=== PATIENT | female | born 1955 | race Caucasian/White ===

== ENCOUNTER 2018-02-17 19:33 | Emergency (ER) | payer OTHER ==
--- NOTE | 2018-02-17 19:38 | PDOC ---
History of Present Illness - General History Source: Patient Exam Limitations: No Limitations - History of Present Illness Initial Comments: The patient is a 62 year old female with past medical history of breast cancer ( 20 years ago;s/p mastectomy) and varicose veins presents to the emergency department with bilateral puffy eyes since yesterday. The patient reports she tried to retrace her steps to find the cause of the problem and she concluded it began after she took aspirin. The patient reports bilateral lower and upper eyelid swelling, with itching and burning sensation, no relief with the use of ice. Denies any problem with aspirin in the past. Denies any watery discharge or change in vision. Denies any cough, congestion or headaches. Denies any nausea, vomiting, diarrhea or constipation. Social history: History of smoking. Denies the use of alcohol or recreational drugs. Allergies: NKDA. Denies any history of pollen allergies. PCP: Dr. Fran Keating 02/17/18 20:25 <Aurora Serrano - Last Filed: 02/17/18 21:51> <Taylor Clayton - Last Filed: 02/18/18 01:50> - General Stated Complaint: PUFFY EYES Time Seen by Provider: 02/17/18 19:36 Past History <Aurora Serrano - Last Filed: 02/17/18 21:51> - Past Medical History Cancer: Yes (BREAST) COPD: No - Suicide/Smoking/Psychosocial Hx Smoking History: Current every day smoker Have you smoked in the past 12 months: Yes Number of Cigarettes Smoked Daily: 8 'Breaking Loose' booklet given: 08/03/14 Hx Alcohol Use: No Drug/Substance Use Hx: No Substance Use Type: None <Taylor Clayton - Last Filed: 02/18/18 01:50> - Past Medical History Allergies/Adverse Reactions: Allergies Allergy/AdvReac Type Severity Reaction Status Date / Time No Known Allergies Allergy Verified 08/16/17 03:39 Home Medications: Ambulatory Orders ASA/Calcium Carb/Mag/Aluminum [Stiven Plus 500 mg Caplet] 500 mg PO ONCE Olopatadine HCl [Patanol] 2 drop OU BID #1 bottle 02/17/18 Review of Systems - Review of Systems Able to Perform ROS?: Yes Comments:: 02/17/18 20:25 GENERAL/CONSTITUTIONAL: No fever or chills. No weakness. HEAD, EYES, EARS, NOSE AND THROAT: (+) Bilateral upper and lower eyelid swelling. No change in vision. No ear pain or discharge. No sore throat. CARDIOVASCULAR: No chest pain or shortness of breath. RESPIRATORY: No cough, wheezing, or hemoptysis. GASTROINTESTINAL: No nausea, vomiting, diarrhea or constipation. GENITOURINARY: No dysuria, frequency, or change in urination. MUSCULOSKELETAL: No joint or muscle swelling or pain. No neck or back pain. SKIN: No rash NEUROLOGIC: No headache, vertigo, loss of consciousness, or change in strength/ sensation. ENDOCRINE: No increased thirst. No abnormal weight change. HEMATOLOGIC/LYMPHATIC: No anemia, easy bleeding, or history of blood clots. ALLERGIC/IMMUNOLOGIC: No hives or skin allergy. <Aurora Serrano - Last Filed: 02/17/18 21:51> *Physical Exam - Vital Signs Last Vital Signs Temp Pulse Resp BP Pulse Ox 98.3 F 86 16 191/94 100 02/17/18 19:39 02/17/18 19:39 02/17/18 19:39 02/17/18 19:39 02/17/18 19:39 - Physical Exam Comments: 02/17/18 20:25 GENERAL: Awake, alert, and fully oriented, in no acute distress HEAD: No signs of trauma EYES: (+) Bilateral moderate upper and lower periorbital edema w/ moderate conjunctival erythema. Pupil anterior chamber normal, no purulent or cresting of the eyelash margin either eye. PERRLA, EOMI intact. ENT: Auricles normal inspection, hearing grossly normal, nares patent, oropharynx clear without exudates. Moist mucosa NECK: Normal ROM, supple, no lymphadenopathy, JVD, or masses LUNGS: Breath sounds equal, clear to auscultation bilaterally. No wheezes, and no crackles HEART: Regular rate and rhythm, normal S1 and S2, no murmurs, rubs or gallops ABDOMEN: Soft, nontender, normoactive bowel sounds. No guarding, no rebound. No masses EXTREMITIES: Normal range of motion, no edema. No clubbing or cyanosis. No cords, erythema, or tenderness NEUROLOGICAL: Cranial nerves II through XII grossly intact. Normal speech, normal gait SKIN: Warm, Dry, normal turgor, no rashes or lesions noted. <Aurora Serrano - Last Filed: 02/17/18 21:51> Medical Decision Making - Medical Decision Making Documentation has been prepared under my direction and personally reviewed by me in its entirety. I attest that this documented accurately reflects all work, treatment, procedures and medical decision making performed by me. As noted above, this 62-year-old woman presents with a one-day history of bilateral periorbital edema/pruritus and conjunctival erythema. No other symptoms present; clinical presentation most consistent of ALLERGIC conjunctivitis of unclear etiology. Since tree pollen is currently at very high level, this is most likely the origin of her ALLERGIC reaction. In any case, patient will be treated with ophthalmic antihistamine (Patanol) drops and patient will place cool compresses to the area. She should follow-up with her general medical doctor; she can return to the emergency room she has severe symptoms. <Taylor Clayton - Last Filed: 02/18/18 01:50> *DC/Admit/Observation/Transfer - Attestations Scribe Attestion: 02/17/18 20:26 Documentation prepared by Aurora Serrano, acting as medical practice administrator for Taylor Clayton MD. <Aurora Serrano - Last Filed: 02/17/18 21:51> <Taylor Clayton - Last Filed: 02/18/18 01:50> Diagnosis at time of Disposition: Allergic conjunctivitis Qualifiers: Laterality: bilateral Qualified Code(s): H10.13 - Acute atopic conjunctivitis, bilateral - Discharge Dispostion Disposition: HOME Condition at time of disposition: Stable - Prescriptions Prescriptions: Olopatadine HCl [Patanol] 2 drop OU BID #1 bottle - Referrals Referrals: Fran Keating NP [Primary Care Provider] - - Patient Instructions Printed Discharge Instructions: DI for Eye Allergic Reaction Additional Instructions: Keep head elevated at night with extra pillow Cool compresses to both eyes as needed Patanol drops 2 drops in each eye twice a day for the next week Return if you have worsening itching/swelling/redness Follow-up with your general doctor within the next 7 days - Post Discharge Activity
[2018-02-17 19:53] VITALS: BP 191/94; PULSE 86; TEMP 98.3; BMI 25.6
== END 2018-02-17 20:20 | disposition home or self-care (01) ==
LOC: FER 19:33
DX: H10.13 Acute atopic conjunctivitis, bilateral (principal); F17.210 Nicotine dependence, cigarettes, uncomplicated; Z85.3 Personal history of malignant neoplasm of breast; Z90.10 Acquired absence of unspecified breast and nipple
CPT/HCPCS: 99281-25

== ENCOUNTER 2018-04-08 05:29 | Observation (INO) | payer OTHER ==
--- NOTE | 2018-04-08 05:37 | PDOC ---
History of Present Illness - General Chief Complaint: Redness To Affected Area Stated Complaint: LEG PAIN/ITCHING Time Seen by Provider: 04/08/18 05:35 History Source: Patient Exam Limitations: No Limitations - History of Present Illness Initial Comments: 04/08/18 05:42 This is a 62-year-old female who had an ALLERGIC reaction that involved her left lower extremity. Patient said it was very itchy initially which was a couple weeks ago. Patient said she was scratching it and now it is gotten progressively worse. Patient said it is still itching but now it is also very painful. Patient denies any fevers or chills. Patient said she has been to the urgent care and her doctor without any relief. Patient now comes in for evaluation. Patient is otherwise healthy. PAST MEDICAL HISTORY: no significant history PAST SURGICAL HISTORY: no significant history FAMILY HISTORY: no pertinant history SOCIAL HISTORY: Pt lives with family and is employed. MEDICATIONS: reviewed ALLERGIES: As per nursing notes Review of Systems General: No fevers or chills, no weakness, no weight loss HEENT: No change in vision. No sore throat,. No ear pain CardioVascular: No chest pain or shortness of breath Respiratory:No cough, or wheezing. Gastrointestinal: no nausea, vomitting, diarrhea or constipation, No rectal bleeding Genitourinary: No dysuria, hematuria, or frequency Musculoskeletal: No joint or muscle pain or swelling Neurologic: No headache, vertigo, dizziness or loss of consciousness Psychiatric: nor depression Skin: Rash itching swelling pain left lower extremity Endocrine: no increased thirst or abnormal weight change Allergic: no skin or latex allergy All other systems reviewed and normal GENERAL: The patient is awake, alert, and fully oriented, in moderate distress HEAD: Normal with no signs of trauma. EYES: Pupils equal, round and reactive to light, extraocular movements intact, sclera anicteric, conjunctiva clear. EXTREMITIES: Normal range of motion, no edema. Left lower extremity from knee down the leg is markedly red and swollen with weeping of a moderate amount of serosanguineous fluid. Neurovascular distal is intact NEUROLOGICAL: Normal speech, normal gait. grossly intact PSYCH: Normal mood, normal affect. SKIN: Warm, Dry, normal turgor, no rashes or lesions noted. Medical decision making: This is a 62-year-old female comes in complaining of left leg pain. Patient on exam does appear to have cellulitis of the leg in addition to that there is moderate amount of swelling. Will obtain workup including CBC, comp, blood cultures, DOPPLER TO RULE OUT DVT. We'll start patient on antibiotics vancomycin and Zosyn. We'll reassess and evaluate results of workup 07:00 Care of this patient was signed out to Dr. Emanuel Scott.. Case discussed in detail with oncoming Emergency Physician including history, physical exam and ancillary studies. Oncoming Emergency Physician has assumed care for the patient and will complete the evaluation and treatment. Patient is aware of the plan. Pt is clinically unchanged and stable. 04/08/18 06:56 Past History - Past Medical History Allergies/Adverse Reactions: Allergies Allergy/AdvReac Type Severity Reaction Status Date / Time No Known Allergies Allergy Verified 08/16/17 03:39 Home Medications: Ambulatory Orders ASA/Calcium Carb/Mag/Aluminum [Stiven Plus 500 mg Caplet] 500 mg PO ONCE Olopatadine HCl [Patanol] 2 drop OU BID #1 bottle 02/17/18 Cancer: Yes (BREAST) COPD: No - Suicide/Smoking/Psychosocial Hx Smoking History: Current every day smoker Have you smoked in the past 12 months: Yes Number of Cigarettes Smoked Daily: 8 Information on smoking cessation initiated: Yes 'Breaking Loose' booklet given: 08/03/14 Hx Alcohol Use: No Drug/Substance Use Hx: No Substance Use Type: None *Physical Exam - Vital Signs Last Vital Signs Temp Pulse Resp BP Pulse Ox 97.8 F 72 18 161/88 98 04/08/18 05:32 04/08/18 05:32 04/08/18 05:32 04/08/18 05:32 04/08/18 05:32 *DC/Admit/Observation/Transfer Diagnosis at time of Disposition: Cellulitis of left leg - Discharge Dispostion Condition at time of disposition: Stable - Referrals Referrals: Fran Keating NP [Primary Care Provider] - - Patient Instructions - Post Discharge Activity
[2018-04-08] MEDS ORDERED: VANCOMYCIN 1 GRAM (PRE-DOCKED) 1,000 MG/250 ML BAG IVPB ONE ×2 (05:38→17:00)
[2018-04-08] MEDS ORDERED: PIPERACILLIN/TAZOB 3.375 GM 3.375 GM in DEXTROSE 5%-WATER - 50 ML IVPB ONE (05:38)
[2018-04-08] MEDS ORDERED: VANCOMYCIN 1,000 MG VIAL (RESTRICTED TO ID ONLY) ONE (05:40)
[2018-04-08] MEDS ORDERED: PIPERACILLIN/TAZOBACTAM 3.375 GM VIAL IVPB ONE (05:40)
[2018-04-08] MEDS ORDERED: morphine CARPU-JECT 4 MG/1 ML DISP.SYRIN IVPUSH ONE ×2 (05:42→07:12)
[2018-04-08] MEDS ORDERED: morphine SULFATE 4 MG/ML VIAL ONE ×2 (05:44→07:15)
[2018-04-08 07:02] LABS: BASO % 0.7 % (0-2.0); EOS % 8.7 % (0-4.5); HEMATOCRIT 35.5 % (32.4-45.2); LYMPH % 30.9 % (8-40); MCHC 33.8 g/dl (32.0-36.0); MEAN CELL VOLUME 91.6 fl (80-96); MONO % 5.9 % (3.8-10.2); NEUT % 53.8 % (42.8-82.8); PLATELET COUNT 357 K/MM3 (134-434); RBC 3.87 M/mm3 (3.60-5.2); RDW 12.7 % (11.6-15.6); WHITE BLOOD COUNT 8.2 K/mm3 (4.0-10.8)
[2018-04-08 07:08] LABS: ALBUMIN 3.4 g/dl (3.5-5.0); ALK PHOS 87 U/L (32-92); ANION GAP 13 (8-16); BILIRUBIN,TOTAL 0.5 mg/dl (0.2-1.0); BLOOD UREA NITROGEN 17 mg/dl (7-18); CHLORIDE 101 mmol/L (98-107); CO2 22 mmol/L (22-28); CREATININE 0.6 mg/dl (0.6-1.3); GLUCOSE,RANDOM 95 mg/dl (74-106); POTASSIUM 4.2 mmol/L (3.5-5.1); SGOT/AST 19 U/L (10-42); SGPT/ALT 10 U/L (10-40); SODIUM 136 mmol/L (136-145); TOT PROT 6.7 g/dl (6.4-8.3)
[2018-04-08] MEDS ORDERED: ACETAMINOPHEN 325 MG TABLET (FP) PO ONE (07:12)
--- NOTE | 2018-04-08 07:12 | PDOC ---
*Physical Exam - Vital Signs Last Vital Signs Temp Pulse Resp BP Pulse Ox 97.8 F 72 18 161/88 98 04/08/18 05:32 04/08/18 05:32 04/08/18 05:32 04/08/18 05:32 04/08/18 05:32 ED Treatment Course - LABORATORY CBC & Chemistry Diagram: 04/08/18 05:45 04/08/18 05:45 - ADDITIONAL ORDERS Additional order review: 04/08/18 05:45 RBC 3.87 MCV 91.6 MCHC 33.8 RDW 12.7 MPV 8.0 Neutrophils % 53.8 Lymphocytes % 30.9 Monocytes % 5.9 Eosinophils % 8.7 H Basophils % 0.7 - Medications Given in the ED: ED Medications Discontinued Medications Generic Name Dose Route Start Last Admin Trade Name Freq PRN Reason Stop Dose Admin Piperacillin Sod/Tazobactam 50 mls @ 100 mls/hr 04/08/18 05:38 04/08/18 06:04 Sod 3.375 gm/ Dextrose IVPB 04/08/18 06:07 100 mls/hr ONCE ONE Administration Protocol Morphine Sulfate 4 mg 04/08/18 05:42 04/08/18 05:45 Morphine Injection - IVPUSH 04/08/18 05:43 4 mg ONCE ONE Administration Vancomycin HCl 1,000 mg 04/08/18 05:38 04/08/18 06:33 Vancomycin (Pre-Docked) IVPB 04/08/18 05:39 1,000 mg ONCE ONE Administration Protocol Medical Decision Making - Medical Decision Making 04/08/18 07:08 Pt signed out to me from Dr. Ramirez Pt is a 62y F with no pmhx arrived complaining of leg pain/swelling, initially started as what she thought to be allergic irreigation, was itchy she was scratching at it until its current status where it is weaping, red/warm, and painful. pt denies any other complaints inluding fever/chills, cp/sob, n/v or discomfort anywhere else. On exam pts LLE is weaping serous fluid, erythemadous , warm to the touch on her anterior lozano/lower leg diffusely with some excoriations., neg homans sign, +pitting edmea +1 suspect celluitis blood work noted for no wbc, rest is pending awaiting DVT study pt getting vanc and zosyn currently 04/08/18 09:06 US neg for dvt ut due to extent of celluitis, will obs pt for a few doses of iv abx 04/08/18 09:32 case dw LESLEY renae agree with obsergation med sug will admit to dr. greenberg service Case discussed in detail with admitting physician including history, physical exam and ancillary studies. Admitting physician has assumed care for the patient, will follow all pending diagnostics and will complete the evaluation and treatment. *DC/Admit/Observation/Transfer Diagnosis at time of Disposition: Cellulitis of left leg - Discharge Dispostion Condition at time of disposition: Stable Decision to Admit order: Yes - Referrals Referrals: Fran Keating NP [Primary Care Provider] - - Patient Instructions - Post Discharge Activity
[2018-04-08] MEDS ORDERED: ACETAMINOPHEN 325 MG TABLET (FP) ONE (07:15)
--- NOTE | 2018-04-08 10:07 | HP ---
CHIEF COMPLAINT: left lower extremity redness and pain PCP: y[facility] HISTORY OF PRESENT ILLNESS: Patient is a 62 y/o female with a past medical history of right breast CA (s/p masectomny/reconstruction/implant). patient reports a pruritic rash that began 2 weeks ago to face, bilateral arms and lower extremities. She was evaluated at a local urgent care and was placed on 7 days of prednisone. She reports taking the prednisone as prescribed and the rash improved. However, three days ago the pruitic rash returned. She notes scratching her left lower extremities within the past 2 days and developing pain and erythema to the extremity. Patient denies any paresthesia to the extremity or fever. ER course was notable for: (1) wbc 8.2 (2) doppler of left lower extremity no evidence of DVT (3) chest xray: no infilirate no effusion noted, right breast implant noted Recent Travel: none PAST MEDICAL HISTORY: see hpi PAST SURGICAL HISTORY: see hpi Social History: resides at home with Smoking: none Alcohol: none Drugs: none Family History: mother: alive, hypertension/alzhemiers father: alive, hypertension Allergies No Known Allergies Allergy (Verified 08/16/17 03:39) HOME MEDICATIONS: Home Medications Medication Instructions Recorded ASA/Calcium Carb/Mag/Aluminum 500 mg PO ONCE 02/17/18 [Stiven Plus 500 mg Caplet] Olopatadine HCl [Patanol] 2 drop OU BID #1 bottle 02/17/18 REVIEW OF SYSTEMS CONSTITUTIONAL: Absent: fever, chills, diaphoresis, generalized weakness, malaise, loss of appetite, weight change HEENT: Absent: rhinorrhea, nasal congestion, throat pain, throat swelling, difficulty swallowing, mouth swelling, ear pain, eye pain, visual changes CARDIOVASCULAR: Absent: chest pain, syncope, palpitations, irregular heart rate, lightheadedness , peripheral edema RESPIRATORY: Absent: cough, shortness of breath, dyspnea with exertion, orthopnea, wheezing, stridor, hemoptysis GASTROINTESTINAL: Absent: abdominal pain, abdominal distension, nausea, vomiting, diarrhea, constipation, melena, hematochezia GENITOURINARY: Absent: dysuria, frequency, urgency, hesitancy, hematuria, flank pain, genital pain MUSCULOSKELETAL: Absent: myalgia, arthralgia, joint swelling, back pain, neck pain SKIN: Absent: rash, itching, pallor HEMATOLOGIC/IMMUNOLOGIC: Absent: easy bleeding, easy bruising, lymphadenopathy, frequent infections ENDOCRINE: Absent: unexplained weight gain, unexplained weight loss, heat intolerance, cold intolerance NEUROLOGIC: Absent: headache, focal weakness or paresthesias, dizziness, unsteady gait, seizure, mental status changes, bladder or bowel incontinence PSYCHIATRIC: Absent: anxiety, depression, suicidal or homicidal ideation, hallucinations. PHYSICAL EXAMINATION Vital Signs - 24 hr 04/08/18 04/08/18 04/08/18 05:32 07:20 08:05 Temperature 97.8 F 97.7 F Pulse Rate 72 Pulse Rate [ 89 81 Left Radial] Respiratory 18 18 16 Rate Blood Pressure 161/88 Blood Pressure 157/76 138/79 [Left Arm] O2 Sat by Pulse 98 98 96 Oximetry (%) GENERAL: Awake, alert, and fully oriented, in no acute distress. HEAD: Normal with no signs of trauma. EYES: Pupils equal, round and reactive to light, extraocular movements intact, sclera anicteric, conjunctiva clear. No lid lag. EARS, NOSE, THROAT: Ears normal, nares patent, oropharynx clear without exudates. Moist mucous membranes. NECK: Normal range of motion, supple without lymphadenopathy, JVD, or masses. LUNGS: Breath sounds equal, clear to auscultation bilaterally. No wheezes, and no crackles. No accessory muscle use. HEART: Regular rate and rhythm, normal S1 and S2 without murmur, rub or gallop. ABDOMEN: Soft, nontender, not distended, normoactive bowel sounds, no guarding, no rebound, no masses. No hepatomegaly or splenomegaly. MUSCULOSKELETAL: Normal range of motion at all joints. No bony deformities or tenderness. No CVA tenderness. UPPER EXTREMITIES: 2+ pulses, warm, well-perfused. No cyanosis. No clubbing. No peripheral edema. LOWER EXTREMITIES: 2+ pulses, warm, well-perfused. No calf tenderness. No peripheral edema. LEFT LOWER EXTREMITY: +2 edema, circumferential erythema, weeping of skin to distal extremity, venous stasis changes NEUROLOGICAL: Cranial nerves II-XII intact. Normal speech. Normal gait. PSYCHIATRIC: Cooperative. Good eye contact. Appropriate mood and affect. SKIN: Warm, dry, normal turgor, no rashes or lesions noted, normal capillary refill. Laboratory Results - last 24 hr 06/29/18 06/29/18 05:45 05:45 WBC 8.2 RBC 3.87 Hgb 12.0 Hct 35.5 MCV 91.6 MCH 31.0 MCHC 33.8 RDW 12.7 Plt Count 357 MPV 8.0 Absolute Neuts (auto) 4.4 Neutrophils % 53.8 Lymphocytes % 30.9 Monocytes % 5.9 Eosinophils % 8.7 H Basophils % 0.7 Sodium 136 Potassium 4.2 Chloride 101 Carbon Dioxide 22 Anion Gap 13 BUN 17 Creatinine 0.6 Creat Clearance w eGFR > 60 Random Glucose 95 Calcium 9.0 Total Bilirubin 0.5 AST 19 ALT 10 Alkaline Phosphatase 87 Total Protein 6.7 Albumin 3.4 L ASSESSMENT/PLAN: f/e/n - regular diet - replete electrolytes prn ppx - oob - pepcid - lovenox dispo: pt requires obsv admission Problem List - Problem (1) Venous insufficiency of left leg Assessment/Plan: - kaley bandage, left lower extremity elevation, doppler reviewed - neurovascular checks - appreciate vascular input Code(s): I87.2 - VENOUS INSUFFICIENCY (CHRONIC) (PERIPHERAL) (2) Allergic reaction Assessment/Plan: - pt reports completing 7 days of prednisone last week, unknown trigger, pt denies any new cosmetics, foods, detergents, pruritic rash noted on exam - solumedrol 125mg iv x 1 ordered, start solumedrol with taper as appropriate, benadryl and pepcid ordered Code(s): T78.40XA - ALLERGY, UNSPECIFIED, INITIAL ENCOUNTER (3) Cellulitis of left leg Assessment/Plan: - likely superimposed infection from allergic reaction, continue vancomycin and zosyn - follow blood cultures - appreciate ID input Code(s): L03.116 - CELLULITIS OF LEFT LOWER LIMB Visit type - Emergency Visit Emergency Visit: Yes ED Registration Date: 04/08/18 Care time: The patient presented to the Emergency Department on the above date and was hospitalized for further evaluation of their emergent condition. - New Patient This patient is new to me today: Yes Date on this admission: 04/08/18 - Critical Care Critical Care patient: No Hospitalist Screening - Colonoscopy Questionnaire Colonoscopy Questionnaire: Colonoscopy Questionnaire - Patient: 50 - 75 years old and never had a screening colonoscopy: No History of colon or rectal polyps, or CA: No History of IBD, Crohn's disease or UC: No History of abdominal radiation therapy as a child: No - Relative: 1 with colon or rectal CA, or polyps at age 60 or younger: No Colon or rectal CA diagnosed at age 45 or younger: No Multiple relatives with colon or rectal CA: No - Outcome: Screening Result: Negative Screen
[2018-04-08 11:56] VITALS: BMI 26.5
[2018-04-08] MEDS ORDERED: ONDANSETRON *ODT* 4 MG TABLET SL PRN (12:43)
[2018-04-08] MEDS ORDERED: morphine CARPU-JECT 2 MG/1 ML DISP.SYRIN IVPUSH ONE (13:15)
[2018-04-08] MEDS ORDERED: ACETAMINOPHEN 1000 MG/100 ML VIAL (NON FORMULARY) IVPB ONE (13:30)
[2018-04-08] MEDS ORDERED: methylPREDNISolone NA SUCC 125 MG/2 ML VIAL IVPUSH ONE (13:30)
[2018-04-08] MEDS ORDERED: FAMOTIDINE 20 MG TABLET PO ONE (13:30)
[2018-04-08] MEDS ORDERED: PIPERACILLIN/TAZOB 3.375 GM 3.375 GM/50 ML BAG IVPB ONE (13:45)
--- NOTE | 2018-04-08 16:30 | PN ---
Progress Note, Physician Chief Complaint: ID Full note dictated Diagnosis of LLE cellulitis with ? severe exzema - Current Medication List Current Medications: Active Medications Acetaminophen (Tylenol -) 650 mg PO Q4H PRN PRN Reason: PAIN LEVEL 1-5 Enoxaparin Sodium (Lovenox -) 40 mg SQ DAILY SERG Famotidine (Pepcid -) 20 mg PO BID SERG Vancomycin HCl (Vancomycin (Pre-Docked)) 1,000 mg in 250 mls @ 250 mls/hr IVPB ONCE ONE; Protocol Stop: 04/08/18 17:59 Methylprednisolone Sodium Succinate (Solu-Medrol -) 40 mg IVPUSH Q8H-IV SERG Non-Formulary Medication (Olopatadine Hcl [Patanol]) 2 drop OU BID SERG Ondansetron HCl (Zofran Odt -) 4 mg SL Q8H PRN PRN Reason: NAUSEA AND/OR VOMITING - Objective Vital Signs: Vital Signs Temperature 98.1 F 04/08/18 11:37 Pulse Rate 83 04/08/18 11:37 Respiratory Rate 17 04/08/18 11:37 Blood Pressure 155/63 04/08/18 11:37 O2 Sat by Pulse Oximetry (%) 96 04/08/18 11:37 Constitutional: Yes: Well Nourished, No Distress Neck: Yes: WNL, Supple Cardiovascular: Yes: Regular Rate and Rhythm, S1, S2 Respiratory: Yes: WNL, Regular, CTA Bilaterally Gastrointestinal: Yes: WNL, Normal Bowel Sounds, Soft. No: Tenderness, Tenderness, Epigastrium Labs: CBC, BMP 04/08/18 05:45 04/08/18 05:45 Problem List - Problems (1) Acute eczema Code(s): L30.9 - DERMATITIS, UNSPECIFIED (2) Acute eczema Code(s): L30.9 - DERMATITIS, UNSPECIFIED (3) Cellulitis of left leg Code(s): L03.116 - CELLULITIS OF LEFT LOWER LIMB Assessment/Plan Microbiology Laboratory Tests 04/08/18 05:45 WBC 8.2 Hgb 12.0 Hct 35.5 Plt Count 357 Assessment Severe exzema ? Less likely scabies spares finger webs involves face also Complicating LLE Plan Cefazolin 2grs q 8 H and Derm consult Kareem ROSA
[2018-04-08] MEDS: CEFAZOLIN 2 GM/D5W 2 GM/50 ML ML IVPB SCH (17:26)
[2018-04-08] MEDS: methylPREDNISolone NA SUCC 40 MG/1 ML VIAL IVPUSH SCH (17:26)
[2018-04-08] MEDS: ACETAMINOPHEN 325 MG TABLET (FP) PO PRN (17:27)
--- NOTE | 2018-04-08 17:40 | CONS ---
INFECTIOUS DISEASE CONSULTATION DATE OF CONSULTATION: 04/08/2018 This is a 62-year-old female who I am asked to see with redness and swelling of the left lower extremity. She has a history of breast cancer many years ago, now in remission, status post mastectomy with reconstructive surgery and breast implant. Over the last several weeks, she has had a generalized, extremely pruritic rash involving her shoulders, arms, and lower extremities as well as her nose. She sought medical attention at an urgent care center where she was placed on 7 days of prednisone with some improvement of the rash though not completely. She has not seen a solution consultant and notes that she has been vigorously scratching her legs over the last several days with subsequent pain, redness, and swelling of the left leg. She denies any fever or chills. She is not diabetic and has no other significant past medical history. She was afebrile here with a white count of 8.2 and a Doppler study which shows no evidence of DVT. PAST MEDICAL HISTORY: As noted above. CURRENT MEDICATIONS: Include vancomycin dose given x1. ALLERGIES: None known. SOCIAL HISTORY: Nonsmoker, lives at home. HIV status unknown. FAMILY HISTORY: Mother alive with Alzheimer's. Father alive with hypertension. REVIEW OF SYSTEMS: All systems reviewed and noncontributory. PHYSICAL EXAMINATION: General: She was an alert female in no acute distress. Vital Signs: The temperature was 98.1, blood pressure 155/63, respirations 16, O2 saturation 96%. Neck: Supple without adenopathy. Lungs: Clear to percussion and auscultation. Heart: S1, S2. Regular rhythm without murmur or gallop. Abdomen: Soft, nontender. Normoactive bowel sounds. No guarding, rebound, organomegaly. Extremities: Diffuse swelling of the left lower extremity with confluent erythema superimposed on dry eczematoid-appearing skin. No drainage was noted. Skin: Multiple maculopapular lesions, some ulcerated and crusting on her arms and lower extremities. LABORATORY DATA: Chemistries: Within normal limit. White count of 8.2, hemoglobin 12, platelets 347. Two sets of blood cultures obtained; no growth. ASSESSMENT: A 62-year-old female with what appears to be severe eczema, presents with vigorous scratching and subsequent development of a swollen, red left lower extremity consistent with a diagnosis of cellulitis. She is not febrile or toxic appearing and can be empirically treated with cefazolin given the absence of any discrete abscesses. With regard to the rash, the etiology to me is currently unclear. It looks eczematoid, but the possibility of a scabies rash is considered, though the rash completely spares the webs of the fingers and toes. Clearly, she needs a dermatology consult for further evaluation. With regard to the cellulitis, we will treat her with 2 g of cefazolin every 8 hours. SAMIR GARCIA M.D. [id number]
[2018-04-08] MEDS ORDERED: PERMETHRIN 5% TOPICAL CREAM 60 GM TUBE TP ONE (19:00)
[2018-04-08] MEDS: FAMOTIDINE 20 MG TABLET PO SCH (21:10)
[2018-04-08] MEDS ORDERED: OLOPATADINE HCL OU SCH (22:00)
[2018-04-09] MEDS: CEFAZOLIN 2 GM/D5W 2 GM/50 ML ML IVPB SCH ×3 (01:16→18:08)
[2018-04-09] MEDS: methylPREDNISolone NA SUCC 40 MG/1 ML VIAL IVPUSH SCH ×3 (01:16→18:08)
[2018-04-09] MEDS: ACETAMINOPHEN 325 MG TABLET (FP) PO PRN ×4 (06:56→23:43)
[2018-04-09 08:43] LABS: BASO % 0.4 % (0-2.0); EOS % 0.2 % (0-4.5); HEMATOCRIT 37.8 % (32.4-45.2); HEMOGLOBIN 12.7 GM/dl (10.7-15.3); MCH 31.2 pg (25.7-33.7); MCHC 33.5 g/dl (32.0-36.0); MEAN PLT VOLUME 8.1 fl (7.5-11.1); MONO % 1.2 % (3.8-10.2); NEUT % 89.2 % (42.8-82.8); PLATELET COUNT 411 K/MM3 (134-434); RBC 4.07 M/mm3 (3.60-5.2); RDW 12.7 % (11.6-15.6); WHITE BLOOD COUNT 12.6 K/mm3 (4.0-10.8)
[2018-04-09 08:55] LABS: ANION GAP 9 (8-16); BLOOD UREA NITROGEN 13 mg/dl (7-18); CALCIUM 8.9 mg/dl (8.4-10.2); CHLORIDE 101 mmol/L (98-107); CO2 26 mmol/L (22-28); GLUCOSE,RANDOM 163 mg/dl (74-106); MAGNESIUM 1.9 mg/dL (1.8-2.4); POTASSIUM 4.1 mmol/L (3.5-5.1); SODIUM 136 mmol/L (136-145)
[2018-04-09 09:00] LABS: CREATININE < 0.8 mg/dl (0.6-1.3)
--- NOTE | 2018-04-09 09:19 | PN ---
Physical Exam: SUBJECTIVE: Patient seen and examined OBJECTIVE: Patient is feeling better, no fever or chills, no shortness of breath. GENE Vital Signs Temperature 98.3 F 04/08/18 21:50 Pulse Rate 81 04/08/18 21:50 Respiratory Rate 19 04/09/18 05:00 Blood Pressure 180/84 04/09/18 05:00 O2 Sat by Pulse Oximetry (%) 98 04/09/18 03:00 RAL: The patient is awake, alert, and fully oriented, in no acute distress. HEAD: Normal with no signs of trauma. EYES: PERRL, extraocular movements intact, sclera anicteric, conjunctiva clear. ENT: Ears normal, oropharynx clear without exudates, moist mucous membranes. positive for Malar rash NECK: Trachea midline, full range of motion, supple. LUNGS: Breath sounds equal, clear to auscultation bilaterally, no wheezes, no crackles, no accessory muscle use. HEART: Regular rate and rhythm, S1, S2 without murmur, rub or gallop. ABDOMEN: Soft, NT,ND, normoactive bowel sounds, no guarding, no rebound, no hepatosplenomegaly, no masses. EXTREMITIES: 2+ pulses, warm, well-perfused, no edema. NEUROLOGICAL: Cranial nerves II through XII grossly intact. Normal speech, gait not observed. PSYCH: Normal mood, normal affect. SKIN: Warm, dry, normal turgor, positive for LLE venous stasis rash with cellulitis and scratch carrasco. upper extremities positive for bite like lesions.. CBCD WBC 12.6 K/mm3 (4.0-10.8) H 04/09/18 07:25 RBC 4.07 M/mm3 (3.60-5.2) 04/09/18 07:25 Hgb 12.7 GM/dl (10.7-15.3) 04/09/18 07:25 Hct 37.8 % (32.4-45.2) 04/09/18 07:25 MCV 93.0 fl (80-96) 04/09/18 07:25 MCHC 33.5 g/dl (32.0-36.0) 04/09/18 07:25 RDW 12.7 % (11.6-15.6) 04/09/18 07:25 Plt Count 411 K/MM3 (134-434) 04/09/18 07:25 MPV 8.1 fl (7.5-11.1) 04/09/18 07:25 CMP Sodium 136 mmol/L (136-145) 04/09/18 07:25 Potassium 4.1 mmol/L (3.5-5.1) 04/09/18 07:25 Chloride 101 mmol/L (98-107) 04/09/18 07:25 Carbon Dioxide 26 mmol/L (22-28) 04/09/18 07:25 Anion Gap 9 (8-16) 04/09/18 07:25 BUN 13 mg/dl (7-18) 04/09/18 07:25 Creatinine < 0.8 mg/dl (0.6-1.3) 04/09/18 07:25 Creat Clearance w eGFR > 60 (>60) 04/09/18 07:25 Random Glucose 163 mg/dl (74-106) H D 04/09/18 07:25 Calcium 8.9 mg/dl (8.4-10.2) 04/09/18 07:25 Total Bilirubin 0.5 mg/dl (0.2-1.0) 04/08/18 05:45 AST 19 U/L (10-42) 04/08/18 05:45 ALT 10 U/L (10-40) 04/08/18 05:45 Alkaline Phosphatase 87 U/L (32-92) 04/08/18 05:45 Total Protein 6.7 g/dl (6.4-8.3) 04/08/18 05:45 Albumin 3.4 g/dl (3.5-5.0) L 04/08/18 05:45 Active Medications Generic Name Dose Route Start Last Admin Trade Name Freq PRN Reason Stop Dose Admin Acetaminophen 650 mg 04/08/18 12:40 04/09/18 06:56 Tylenol - PO 650 mg Q4H PRN Administration PAIN LEVEL 1-5 Enoxaparin Sodium 40 mg 04/09/18 10:00 Lovenox - SQ DAILY SERG Famotidine 20 mg 04/08/18 22:00 04/08/18 21:10 Pepcid - PO 20 mg BID SERG Administration Cefazolin Sodium/Dextrose 2 gm in 50 mls @ 100 mls/hr 04/08/18 18:00 01:16 Ancef 2 Gm Premixed Ivpb - IVPB 100 mls/hr Q8H-IV SERG Administration Methylprednisolone Sodium Succinate 40 mg 04/08/18 18:00 04/09/18 01:16 Solu-Medrol - IVPUSH 40 mg Q8H-IV SERG Administration Non-Formulary Medication 2 drop 04/08/18 22:00 Olopatadine Hcl [Patanol] OU BID SERG Ondansetron HCl 4 mg 04/08/18 12:43 Zofran Odt - SL Q8H PRN NAUSEA AND/OR VOMITING Microbiology 04/08/18 05:45 Blood - Peripheral Venous Blood Culture - Preliminary NO GROWTH OBTAINED AFTER 24 HOURS, INCUBATION TO CONTINUE FOR 4 DAYS. 04/08/18 05:45 Blood - Peripheral Venous Blood Culture - Preliminary NO GROWTH OBTAINED AFTER 24 HOURS, INCUBATION TO CONTINUE FOR 4 DAYS. Home Medications Medication Instructions Recorded ASA/Calcium Carb/Mag/Aluminum 500 mg PO ONCE 02/17/18 [Stiven Plus 500 mg Caplet] Olopatadine HCl [Patanol] 2 drop OU BID #1 bottle 02/17/18 Microbiology 04/08/18 05:45 Blood - Peripheral Venous Blood Culture - Preliminary NO GROWTH OBTAINED AFTER 24 HOURS, INCUBATION TO CONTINUE FOR 4 DAYS. 04/08/18 05:45 Blood - Peripheral Venous Blood Culture - Preliminary NO GROWTH OBTAINED AFTER 24 HOURS, INCUBATION TO CONTINUE FOR 4 DAYS. Left leg Doppler ultrasound. Grayscale, pulsed Doppler and color Doppler interrogation of the left lower extremity deep venous system was performed. The left common femoral vein, superficial femoral vein, popliteal and posterior tibial vein were identified with a normal phasic wave form, adequate compressibility and adequate response to augmentation. Visualized portion of the greater saphenous and deep femoral vein are patent. No Franks's cyst is identified within the popliteal fossa Impression: There is no evidence of deep venous thrombosis in the left lower extremity. Note is is made of a prominent lymph node in the left groin measuring 3.4 x 1 cm ASSESSMENT/PLAN: Patient is a 62 y/o female with a past medical history of right breast CA (s/p masectomny/reconstruction/implant). patient reports a pruritic rash that began 2 weeks ago to face, bilateral arms and lower extremities. She was evaluated at a local urgent care and was placed on 7 days of prednisone. She reports taking the prednisone as prescribed and the rash improved. However, three days ago the pruitic rash returned. She notes scratching her left lower extremities within the past 2 days and developing pain and erythema to the extremity. # Acute LLE Cellulitis continue IV antibiotic as per ID. Cefazolin 2gm with likely superimposed infection from allergic reaction. Patient needs to follow with an application development project manager for further testing. follow Blood Cx pending, Id consult appreciated. Also suggested the patient that she needs to see an application development project manager for allergy testing. Derm consult recommended as well. # Venous Stasis of left lower extremity with cellulitis due to pruritus. kaley bandage, left lower extremity elevation, doppler reviewed. No DVT , but prominent 3.4cm lymph note of left groin, possible that's reactive due to her infection. Follow up needed as an outpatient for resolution of the swelling in 2 weeks. # Allergic reaction on IV solu medrol. s/p presdnisone - pt reports completing 7 days of prednisone last week, unknown trigger, pt denies any new cosmetics, foods, detergents, pruritic rash noted on exam - solumedrol 125mg iv x 1 ordered, on solumedrol taper as appropriate, benadryl and pepcid ordered DVt Px: Lovenox Visit type - Emergency Visit Emergency Visit: Yes ED Registration Date: 04/08/18 Care time: The patient presented to the Emergency Department on the above date and was hospitalized for further evaluation of their emergent condition. - New Patient This patient is new to me today: Yes Date on this admission: 04/09/18 - Critical Care Critical Care patient: No - Discharge Referral Referred to [facility] Med P.C.: No
--- NOTE | 2018-04-09 09:42 | EKG ---
Test Reason : Blood Pressure : / mmHG Vent. Rate : 077 BPM Atrial Rate : 077 BPM P-R Int : 166 ms QRS Dur : 080 ms QT Int : 400 ms P-R-T Axes : 069 008 056 degrees QTc Int : 452 ms SINUS RHYTHM WITH FREQUENT PREMATURE VENTRICULAR COMPLEXES WHEN COMPARED WITH ECG OF 04-MAR-2000 15:42, PREMATURE VENTRICULAR COMPLEXES ARE NOW PRESENT NONSPECIFIC T WAVE ABNORMALITY NO LONGER EVIDENT IN ANTERIOR LEADS Confirmed by WILLIE QUINN MD ([id number]) on 04/09/2018 9:41:34 AM Referred By: TRAMAINE Confirmed By:WILLIE QUINN MD
[2018-04-09] MEDS: ENOXAPARIN NA (PORCINE) 40 MG/0.4 ML DISP.SYRIN SQ SCH (10:00)
[2018-04-09] MEDS: FAMOTIDINE 20 MG TABLET PO SCH ×2 (10:00→21:47)
[2018-04-09] MEDS: MELATONIN 5 MG TABLETS PO PRN (23:23)
[2018-04-10] MEDS: methylPREDNISolone NA SUCC 40 MG/1 ML VIAL IVPUSH SCH ×3 (01:56→18:24)
[2018-04-10] MEDS: CEFAZOLIN 2 GM/D5W 2 GM/50 ML ML IVPB SCH ×3 (01:56→18:24)
[2018-04-10] MEDS: ENOXAPARIN NA (PORCINE) 40 MG/0.4 ML DISP.SYRIN SQ SCH (09:27)
[2018-04-10] MEDS: FAMOTIDINE 20 MG TABLET PO SCH ×2 (09:27→22:22)
--- NOTE | 2018-04-10 14:29 | PN ---
Progress Note (short form) - Note Progress Note: Patient is comfortable with no acute distress, no shortness of breath, feels better, no further pruritus. Vital Signs Temperature 98.0 F 04/10/18 06:02 Pulse Rate 73 04/10/18 06:02 Respiratory Rate 20 04/10/18 11:00 Blood Pressure 171/89 04/10/18 06:02 O2 Sat by Pulse Oximetry (%) 99 04/10/18 11:00 Gen: The patient is awake, alert, and fully oriented, in no acute distress. HEAD: Normal with no signs of trauma. EYES: PERRL, extraocular movements intact, sclera anicteric, conjunctiva clear. ENT: Ears normal, oropharynx clear without exudates, moist mucous membranes. positive for Malar rash NECK: Trachea midline, full range of motion, supple. LUNGS: Breath sounds equal, clear to auscultation bilaterally, no wheezes, no crackles, no accessory muscle use. HEART: Regular rate and rhythm, S1, S2 without murmur, rub or gallop. ABDOMEN: Soft, NT,ND, normoactive bowel sounds, no guarding, no rebound, no hepatosplenomegaly, no masses. EXTREMITIES: 2+ pulses, warm, well-perfused, no edema. NEUROLOGICAL: Cranial nerves II through XII grossly intact. Normal speech, gait not observed. PSYCH: Normal mood, normal affect. SKIN: Warm, dry, normal turgor, positive for LLE venous stasis rash with cellulitis and scratch carrasco with some granulation tissue. upper extremities positive for bite like lesions CBCD WBC 12.6 K/mm3 (4.0-10.8) H 04/09/18 07:25 RBC 4.07 M/mm3 (3.60-5.2) 04/09/18 07:25 Hgb 12.7 GM/dl (10.7-15.3) 04/09/18 07:25 Hct 37.8 % (32.4-45.2) 04/09/18 07:25 MCV 93.0 fl (80-96) 04/09/18 07:25 MCHC 33.5 g/dl (32.0-36.0) 04/09/18 07:25 RDW 12.7 % (11.6-15.6) 04/09/18 07:25 Plt Count 411 K/MM3 (134-434) 04/09/18 07:25 MPV 8.1 fl (7.5-11.1) 04/09/18 07:25 CMP Sodium 136 mmol/L (136-145) 04/09/18 07:25 Potassium 4.1 mmol/L (3.5-5.1) 04/09/18 07:25 Chloride 101 mmol/L (98-107) 04/09/18 07:25 Carbon Dioxide 26 mmol/L (22-28) 04/09/18 07:25 Anion Gap 9 (8-16) 04/09/18 07:25 BUN 13 mg/dl (7-18) 04/09/18 07:25 Creatinine < 0.8 mg/dl (0.6-1.3) 04/09/18 07:25 Creat Clearance w eGFR > 60 (>60) 04/09/18 07:25 Random Glucose 163 mg/dl (74-106) H D 04/09/18 07:25 Calcium 8.9 mg/dl (8.4-10.2) 04/09/18 07:25 Total Bilirubin 0.5 mg/dl (0.2-1.0) 04/08/18 05:45 AST 19 U/L (10-42) 04/08/18 05:45 ALT 10 U/L (10-40) 04/08/18 05:45 Alkaline Phosphatase 87 U/L (32-92) 04/08/18 05:45 Total Protein 6.7 g/dl (6.4-8.3) 04/08/18 05:45 Albumin 3.4 g/dl (3.5-5.0) L 04/08/18 05:45 Current Medications Generic Name Dose Route Start Last Admin Trade Name Freq PRN Reason Stop Dose Admin Acetaminophen 650 mg 04/08/18 12:40 04/09/18 23:43 Tylenol - PO 650 mg Q4H PRN Administration PAIN LEVEL 1-5 Enoxaparin Sodium 40 mg 04/09/18 10:00 04/10/18 09:27 Lovenox - SQ 40 mg DAILY SERG Administration Famotidine 20 mg 04/08/18 22:00 04/10/18 09:27 Pepcid - PO 20 mg BID SERG Administration Cefazolin Sodium/Dextrose 2 gm in 50 mls @ 100 mls/hr 04/08/18 18:00 09:27 Ancef 2 Gm Premixed Ivpb - IVPB 100 mls/hr Q8H-IV SERG Administration Melatonin 5 mg 04/09/18 21:41 04/09/18 23:23 Melatonin PO 5 mg HS PRN Administration INSOMNIA Methylprednisolone Sodium Succinate 40 mg 04/08/18 18:00 04/10/18 09:28 Solu-Medrol - IVPUSH 40 mg Q8H-IV SERG Administration Non-Formulary Medication 2 drop 04/08/18 22:00 Olopatadine Hcl [Patanol] OU BID SERG Ondansetron HCl 4 mg 04/08/18 12:43 Zofran Odt - SL Q8H PRN NAUSEA AND/OR VOMITING Home Medications Medication Instructions Recorded ASA/Calcium Carb/Mag/Aluminum 500 mg PO ONCE 02/17/18 [Stiven Plus 500 mg Caplet] Olopatadine HCl [Patanol] 2 drop OU BID #1 bottle 02/17/18 Left leg Doppler ultrasound. Grayscale, pulsed Doppler and color Doppler interrogation of the left lower extremity deep venous system was performed. The left common femoral vein, superficial femoral vein, popliteal and posterior tibial vein were identified with a normal phasic wave form, adequate compressibility and adequate response to augmentation. Visualized portion of the greater saphenous and deep femoral vein are patent. No Franks's cyst is identified within the popliteal fossa Impression: There is no evidence of deep venous thrombosis in the left lower extremity. Note is is made of a prominent lymph node in the left groin measuring 3.4 x 1 cm ASSESSMENT/PLAN: Patient is a 62 y/o female with a past medical history of right breast CA (s/p masectomny/reconstruction/implant). patient reports a pruritic rash that began 2 weeks ago to face, bilateral arms and lower extremities. She was evaluated at a local urgent care and was placed on 7 days of prednisone. She reports taking the prednisone as prescribed and the rash improved. However, three days ago the pruitic rash returned. She notes scratching her left lower extremities within the past 2 days and developing pain and erythema to the extremity. # Acute LLE Cellulitis improving continue IV antibiotic for now, continue to monitor as per ID. Continue Cefazolin 2gm likely superimposed infection from allergic reaction. Patient needs to follow with an crankshaft grinder for further testing. follow Blood Cx pending, Id consult appreciated. Also suggested the patient that she needs to see an crankshaft grinder for allergy testing. Derm consult as an outpatient since no launch check out available, follow up as an outpatientl. Possible needing wound care. # Venous Stasis of left lower extremity with cellulitis due to pruritus. kaley bandage, left lower extremity elevation, doppler reviewed. No DVT , but prominent 3.4cm lymph note of left groin, possible that's reactive due to her infection. Follow up needed as an outpatient for resolution of the swelling in 2 weeks. # Allergic reaction on IV solu medrol. s/p presdnisone improved. - pt reports completing 7 days of prednisone last week, unknown trigger, pt denies any new cosmetics, foods, detergents, pruritic rash noted on exam. solumedrol 125mg iv x 1 ordered, on solumedrol taper as appropriate, benadryl and pepcid ordered DVt Px: Lovenox Visit type - Emergency Visit Emergency Visit: Yes ED Registration Date: 04/08/18 Care time: The patient presented to the Emergency Department on the above date and was hospitalized for further evaluation of their emergent condition. - New Patient This patient is new to me today: No - Critical Care Critical Care patient: No - Discharge Referral Referred to [facility] Med P.C.: No
[2018-04-10] MEDS: ACETAMINOPHEN 325 MG TABLET (FP) PO PRN (18:24)
[2018-04-10] MEDS: MELATONIN 5 MG TABLETS PO PRN (22:22)
[2018-04-11] MEDS: methylPREDNISolone NA SUCC 40 MG/1 ML VIAL IVPUSH SCH ×3 (01:50→21:08)
[2018-04-11] MEDS: CEFAZOLIN 2 GM/D5W 2 GM/50 ML ML IVPB SCH ×3 (01:50→19:33)
--- NOTE | 2018-04-11 08:18 | PN ---
Progress Note (short form) - Note Progress Note: Surgery We have been asked to evaluate this patient for left LE cellulitis possible vasculitis. PMHX reviewed in patient chart. 62yo female patient reports a pruritic rash that began 2 weeks ago on face, bilateral arms and legs. She was evaluated at a local urgent care and was placed on 7 days of prednisone. She reports taking the prednisone and the rash improved but, five days ago the pruitic rash returned with worse pain and itching in the left LE. The patient states that she has an ulcer over the posterior calf that developed almost a year ago and hasn't healed but she has not seen anyone or been treated for it. She has never been to a vascular surgeon or dean of student services but is scheduled to see derm later this month. Patient denies any paresthesia to the extremity or fever or chills associated with presentation. Vital Signs Temp 98.0 F 04/11/18 06:00 Pulse 79 04/11/18 06:00 Resp 20 04/11/18 06:00 BP 168/69 04/11/18 06:00 Pulse Ox 99 04/11/18 06:49 Intake & Output 04/10/18 04/10/18 04/11/18 11:59 23:59 11:59 Intake Total 450 1000 100 Balance 450 1000 100 Intake: IVPB 200 100 Oral 450 800 Other: Voiding Method Toilet Toilet Toilet # Unmeasured Voids Void 2 Bowel Movement No No CBC, BMP 04/09/18 07:25 04/09/18 07:25 PE: A&Ox3, NAD unlabored resp on RA Left LE with stage II ulcer over posterior/medial calf at distal 3rd @ 4X2cm with fibrinous exudate and beefy red base, clean boarders, small 1x1 cm stage II ulcer over posterior lateral calf with fibrinous exudate no foul smell or signs of infection. Macerated tissue over anterior lozano with ulcerations throughout several areas of healing excoriations and scabs throughout with chronic skin changes, some areas of SS d/c no evidence ot tracking erythema of edema. Area redressed with Xeroform, cling and nargis wrap. B/L LE compartments soft, supple and non-tender to palpation with + 2 DP pulses , feet warm and well perfused. Multiple telangiectasia throughout, no evidence of varicosities. Problem List - Problems (1) Cellulitis of left leg Assessment/Plan: Patient with resolving cellulitis, questionable allergic reaction with acute on chronic skin changes and non-healing ulcers. 1) Daily dressing changes with Santyl to calf ulcerations and xeroform, cling and NARGIS wrap to lozano 2) Elevate Left LE 3) Follow with wound care as out patient 4) VNS for wound care Evaluation and plan discussed with Dr Olmedo Code(s): L03.116 - CELLULITIS OF LEFT LOWER LIMB
--- NOTE | 2018-04-11 09:06 | PN ---
Progress Note, Physician History of Present Illness: C/O pruritis L LE No c/o fever/ chills Tolerating antibiotic - Current Medication List Current Medications: Active Medications Acetaminophen (Tylenol -) 650 mg PO Q4H PRN PRN Reason: PAIN LEVEL 1-5 Last Admin: 04/10/18 18:24 Dose: 650 mg Collagenase (Santyl -) 1 applic TP DAILY [facility]; Protocol Enoxaparin Sodium (Lovenox -) 40 mg SQ DAILY [facility] Last Admin: 04/10/18 09:27 Dose: 40 mg Famotidine (Pepcid -) 20 mg PO BID [facility] Last Admin: 04/10/18 22:22 Dose: 20 mg Cefazolin Sodium/Dextrose (Ancef 2 Gm Premixed Ivpb -) 2 gm in 50 mls @ 100 mls /hr IVPB Q8H-IV SERG Last Admin: 04/11/18 01:50 Dose: 100 mls/hr Melatonin (Melatonin) 5 mg PO HS PRN PRN Reason: INSOMNIA Last Admin: 04/10/18 22:22 Dose: 5 mg Methylprednisolone Sodium Succinate (Solu-Medrol -) 40 mg IVPUSH BID [facility] Non-Formulary Medication (Olopatadine Hcl [Patanol]) 2 drop OU BID SERG Ondansetron HCl (Zofran Odt -) 4 mg SL Q8H PRN PRN Reason: NAUSEA AND/OR VOMITING - Objective Vital Signs: Vital Signs Temperature 98.0 F 04/11/18 06:00 Pulse Rate 79 04/11/18 06:00 Respiratory Rate 20 04/11/18 06:00 Blood Pressure 168/69 04/11/18 06:00 O2 Sat by Pulse Oximetry (%) 99 04/11/18 06:49 Constitutional: Yes: No Distress Eyes: Yes: Conjunctiva Clear Cardiovascular: Yes: Regular Rate and Rhythm, S1, S2 Respiratory: Yes: CTA Bilaterally Gastrointestinal: Yes: Normal Bowel Sounds, Soft. No: Tenderness Extremities: Yes: Other (+ erythema, excoriations L LE) Labs: CBC, BMP 04/09/18 07:25 04/09/18 07:25 Assessment/Plan Cellulitis L LE Dermatitis ? etiology Continue cefazolin Dermatology evaluation
--- NOTE | 2018-04-11 09:20 | PN ---
Physical Exam: SUBJECTIVE: Patient seen and examined, ambulatory at bedside, reports minimal pain to the left lower extremity upon ambulating, patient denies any paresthesia , denies any tactile fevers. OBJECTIVE: Patient is a 62 y/o female with a past medical history of right breast CA (s/p masectomny/reconstruction/implant). Patient was admitted from the emergency department for cellulitis of left lower extremity Vital Signs Period Temp Pulse Resp BP Sys/Penaloza Pulse Ox Last 24 Hr 97.8 F-98.3 F 69-80 16-20 148-168/66-78 99-100 GENERAL: The patient is awake, alert, and fully oriented, in no acute distress. HEAD: Normal with no signs of trauma. EYES: PERRL, extraocular movements intact, sclera anicteric, conjunctiva clear. No ptosis. ENT: Ears normal, nares patent, oropharynx clear without exudates, moist mucous membranes. NECK: Trachea midline, full range of motion, supple. LUNGS: Breath sounds equal, clear to auscultation bilaterally, no wheezes, no crackles, no accessory muscle use. HEART: Regular rate and rhythm, S1, S2 without murmur, rub or gallop. ABDOMEN: Soft, nontender, nondistended, normoactive bowel sounds, no guarding, no rebound, no hepatosplenomegaly, no masses. EXTREMITIES: 2+ pulses, warm, well-perfused, venous stasis changes noted billateraly, left lower extremity, erythema much improved, 4 x2 cm ulceration noted, posterior medial calf NEUROLOGICAL: Cranial nerves II through XII grossly intact. Normal speech, gait not observed. PSYCH: Normal mood, normal affect. SKIN: Warm, dry, normal turgor, no rashes or lesions noted Active Medications Generic Name Dose Route Start Last Admin Trade Name Freq PRN Reason Stop Dose Admin Acetaminophen 650 mg 04/08/18 12:40 04/10/18 18:24 Tylenol - PO 650 mg Q4H PRN Administration PAIN LEVEL 1-5 Collagenase 1 applic 04/11/18 10:00 Santyl - TP DAILY [facility] Protocol Enoxaparin Sodium 40 mg 04/09/18 10:00 04/10/18 09:27 Lovenox - SQ 40 mg DAILY SERG Administration Famotidine 20 mg 04/08/18 22:00 04/10/18 22:22 Pepcid - PO 20 mg BID SERG Administration Cefazolin Sodium/Dextrose 2 gm in 50 mls @ 100 mls/hr 04/08/18 18:00 01:50 Ancef 2 Gm Premixed Ivpb - IVPB 100 mls/hr Q8H-IV SERG Administration Melatonin 5 mg 04/09/18 21:41 04/10/18 22:22 Melatonin PO 5 mg HS PRN Administration INSOMNIA Methylprednisolone Sodium Succinate 40 mg 04/11/18 10:00 Solu-Medrol - IVPUSH BID SERG Non-Formulary Medication 2 drop 04/08/18 22:00 Olopatadine Hcl [Patanol] OU BID SERG Ondansetron HCl 4 mg 04/08/18 12:43 Zofran Odt - SL Q8H PRN NAUSEA AND/OR VOMITING Microbiology 04/08/18 05:45 Blood - Peripheral Venous Blood Culture - Preliminary NO GROWTH OBTAINED AFTER 72 HOURS, INCUBATION TO CONTINUE FOR 2 DAYS. 04/08/18 05:45 Blood - Peripheral Venous Blood Culture - Preliminary NO GROWTH OBTAINED AFTER 72 HOURS, INCUBATION TO CONTINUE FOR 2 DAYS. IMAGING Left leg Doppler ultrasound. Grayscale, pulsed Doppler and color Doppler interrogation of the left lower extremity deep venous system was performed. The left common femoral vein, superficial femoral vein, popliteal and posterior tibial vein were identified with a normal phasic wave form, adequate compressibility and adequate response to augmentation. Visualized portion of the greater saphenous and deep femoral vein are patent. No Franks's cyst is identified within the popliteal fossa Impression: There is no evidence of deep venous thrombosis in the left lower extremity. Note is is made of a prominent lymph node in the left groin measuring 3.4 x 1 cm ASSESSMENT/PLAN: 1) ID cellulitis of LE - continue cefazolin daily - blood cultures are negative to date - no leukocytosis, patient is afebrile - Dr Turcios, ID consulted and followed 2) cardiovascular venous infufficency - continue xeroform and santyl to venous ulcer as per vascular - continue leg elevation - pt will require outpatient follow up with vascular surgeon 3) allergic reaction - pruritis, significantly improved with solumedrol will taper to BID - pt pippa require outpatient follow up with dermatology f/e/n - regular diet - replete electrolytes prn ppx - oob - pepcid - lovenox dispo: pt requires obsv admission Problem List - Problems (1) Venous insufficiency of left leg Code(s): I87.2 - VENOUS INSUFFICIENCY (CHRONIC) (PERIPHERAL) (2) Allergic reaction Code(s): T78.40XA - ALLERGY, UNSPECIFIED, INITIAL ENCOUNTER (3) Cellulitis of left leg Code(s): L03.116 - CELLULITIS OF LEFT LOWER LIMB
[2018-04-11] MEDS: ENOXAPARIN NA (PORCINE) 40 MG/0.4 ML DISP.SYRIN SQ SCH (09:33)
[2018-04-11] MEDS: FAMOTIDINE 20 MG TABLET PO SCH ×2 (09:33→21:08)
[2018-04-11] MEDS: COLLAGENASE CLOSTRIDIUM HIST. 30 GRAMS TUBE TP SCH (09:34)
[2018-04-11] MEDS: ACETAMINOPHEN 325 MG TABLET (FP) PO PRN (09:58)
--- NOTE | 2018-04-11 10:58 | PN ---
Physical Exam: SUBJECTIVE: Patient seen and examined OBJECTIVE: Vital Signs Period Temp Pulse Resp BP Sys/Penaloza Pulse Ox Last 24 Hr 97.8 F-98.3 F 69-82 16-20 148-168/66-78 99-100 GENERAL: The patient is awake, alert, and fully oriented, in no acute distress. HEAD: Normal with no signs of trauma. EYES: PERRL, extraocular movements intact, sclera anicteric, conjunctiva clear. No ptosis. ENT: Ears normal, nares patent, oropharynx clear without exudates, moist mucous membranes. NECK: Trachea midline, full range of motion, supple. LUNGS: Breath sounds equal, clear to auscultation bilaterally, no wheezes, no crackles, no accessory muscle use. HEART: Regular rate and rhythm, S1, S2 without murmur, rub or gallop. ABDOMEN: Soft, nontender, nondistended, normoactive bowel sounds, no guarding, no rebound, no hepatosplenomegaly, no masses. EXTREMITIES: 2+ pulses, warm, well-perfused, no edema. NEUROLOGICAL: Cranial nerves II through XII grossly intact. Normal speech, gait not observed. PSYCH: Normal mood, normal affect. SKIN: Warm, dry, normal turgor, no rashes or lesions noted Active Medications Generic Name Dose Route Start Last Admin Trade Name Freq PRN Reason Stop Dose Admin Acetaminophen 650 mg 04/08/18 12:40 04/11/18 09:58 Tylenol - PO 650 mg Q4H PRN Administration PAIN LEVEL 1-5 Collagenase 1 applic 04/11/18 10:00 04/11/18 09:34 Santyl - TP 1 applic DAILY SERG Administration Protocol Enoxaparin Sodium 40 mg 04/09/18 10:00 04/11/18 09:33 Lovenox - SQ 40 mg DAILY SERG Administration Famotidine 20 mg 04/08/18 22:00 04/11/18 09:33 Pepcid - PO 20 mg BID SERG Administration Cefazolin Sodium/Dextrose 2 gm in 50 mls @ 100 mls/hr 04/08/18 18:00 09:33 Ancef 2 Gm Premixed Ivpb - IVPB 100 mls/hr Q8H-IV SERG Administration Melatonin 5 mg 04/09/18 21:41 04/10/18 22:22 Melatonin PO 5 mg HS PRN Administration INSOMNIA Methylprednisolone Sodium Succinate 40 mg 04/11/18 10:00 04/11/18 09:35 Solu-Medrol - IVPUSH 40 mg BID SERG Administration Non-Formulary Medication 2 drop 04/08/18 22:00 Olopatadine Hcl [Patanol] OU BID SERG Ondansetron HCl 4 mg 04/08/18 12:43 Zofran Odt - SL Q8H PRN NAUSEA AND/OR VOMITING ASSESSMENT/PLAN: Problem List - Problems (1) Venous insufficiency of left leg Code(s): I87.2 - VENOUS INSUFFICIENCY (CHRONIC) (PERIPHERAL) (2) Allergic reaction Code(s): T78.40XA - ALLERGY, UNSPECIFIED, INITIAL ENCOUNTER (3) Cellulitis of left leg Code(s): L03.116 - CELLULITIS OF LEFT LOWER LIMB
[2018-04-11] MEDS ORDERED: ZOLPIDEM TARTRATE 5 MG TABLET PO PRN (14:08)
[2018-04-11] MEDS: oxyCODONE HCL 5 MG TABLET PO PRN ×2 (16:35→22:04)
[2018-04-11] MEDS: LACTOBACILLUS ACIDOPHILUS 1 TABLET PO SCH (17:04)
[2018-04-12] MEDS: CEFAZOLIN 2 GM/D5W 2 GM/50 ML ML IVPB SCH ×2 (01:29→10:07)
[2018-04-12] MEDS: FAMOTIDINE 20 MG TABLET PO SCH (10:07)
[2018-04-12] MEDS: ENOXAPARIN NA (PORCINE) 40 MG/0.4 ML DISP.SYRIN SQ SCH (10:07)
[2018-04-12] MEDS: LACTOBACILLUS ACIDOPHILUS 1 TABLET PO SCH (10:08)
[2018-04-12] MEDS: methylPREDNISolone NA SUCC 40 MG/1 ML VIAL IVPUSH SCH (10:08)
[2018-04-12] MEDS: COLLAGENASE CLOSTRIDIUM HIST. 30 GRAMS TUBE TP SCH (10:08)
--- NOTE | 2018-04-12 10:52 | PN ---
Progress Note, Physician History of Present Illness: C/O pruritis generalized pruritis No c/o L LE pain No c/o fever/ chills Tolerating antibiotic - Current Medication List Current Medications: Active Medications Acetaminophen (Tylenol -) 650 mg PO Q4H PRN PRN Reason: PAIN LEVEL 1-5 Last Admin: 04/11/18 09:58 Dose: 650 mg Collagenase (Santyl -) 1 applic TP DAILY REPLACED BY [facility]; Protocol Last Admin: 04/12/18 10:08 Dose: 1 applic Enoxaparin Sodium (Lovenox -) 40 mg SQ DAILY REPLACED BY [facility] Last Admin: 04/12/18 10:07 Dose: 40 mg Famotidine (Pepcid -) 20 mg PO BID REPLACED BY [facility] Last Admin: 04/12/18 10:07 Dose: 20 mg Cefazolin Sodium/Dextrose (Ancef 2 Gm Premixed Ivpb -) 2 gm in 50 mls @ 100 mls /hr IVPB Q8H-IV REPLACED BY [facility] Last Admin: 04/12/18 10:07 Dose: 100 mls/hr Lactobacillus Acidophilus (Bacid -) 1 tab PO DAILY REPLACED BY [facility] Last Admin: 04/12/18 10:08 Dose: 1 tab Melatonin (Melatonin) 5 mg PO HS PRN PRN Reason: INSOMNIA Last Admin: 04/10/18 22:22 Dose: 5 mg Methylprednisolone Sodium Succinate (Solu-Medrol -) 40 mg IVPUSH BID REPLACED BY [facility] Last Admin: 04/12/18 10:08 Dose: 40 mg Non-Formulary Medication (Olopatadine Hcl [Patanol]) 2 drop OU BID REPLACED BY [facility] Ondansetron HCl (Zofran Odt -) 4 mg SL Q8H PRN PRN Reason: NAUSEA AND/OR VOMITING Oxycodone HCl (Roxicodone -) 5 mg PO Q6H PRN PRN Reason: PAIN LEVEL 7 - 10 Last Admin: 04/11/18 22:04 Dose: 5 mg Zolpidem Tartrate (Ambien -) 5 mg PO HS PRN PRN Reason: INSOMNIA Last Admin: 04/12/18 00:28 Dose: 5 mg - Objective Vital Signs: Vital Signs Temperature 98.1 F 04/12/18 06:00 Pulse Rate 93 H 04/12/18 06:00 Respiratory Rate 16 04/12/18 08:10 Blood Pressure 170/80 04/12/18 06:00 O2 Sat by Pulse Oximetry (%) 96 04/12/18 08:10 Constitutional: Yes: No Distress Eyes: Yes: Conjunctiva Clear Cardiovascular: Yes: Regular Rate and Rhythm, S1, S2 Respiratory: Yes: CTA Bilaterally Gastrointestinal: Yes: Normal Bowel Sounds, Soft. No: Tenderness Extremities: Yes: Other (erythema/ swelling L LE resolved. + superficial ulceration. no drainage) Labs: CBC, BMP 04/09/18 07:25 04/09/18 07:25 Assessment/Plan Cellulitis L LE - resolved Dermatitis ? etiology Discontinue cefazolin Keflex 500mg po q6h x 7d Local wound care ? referral to wound care center Dermatology evaluation
[2018-04-12] MEDS: oxyCODONE HCL 5 MG TABLET PO PRN (10:53)
[2018-04-12] MEDS: ACETAMINOPHEN 325 MG TABLET (FP) PO PRN (10:53)
[2018-04-12] MEDS ORDERED: CHOLECALCIFEROL (VITAMIN D3) 1,000 UNIT TABLET (FP) PO SCH (13:00)
--- NOTE | 2018-04-12 13:53 | DS ---
Physical Exam: SUBJECTIVE: Patient seen and examined OBJECTIVE: Vital Signs Period Temp Pulse Resp BP Sys/Penaloza Pulse Ox Last 24 Hr 98.1 F-98.2 F 77-93 16-20 163-170/60-82 95-99 PHYSICAL EXAM GENERAL: The patient is awake, alert, and fully oriented, in no acute distress. HEAD: Normal with no signs of trauma. EYES: PERRL, extraocular movements intact, sclera anicteric, conjunctiva clear. ENT: Ears normal, nares patent, oropharynx clear without exudates, moist mucous membranes. NECK: Trachea midline, full range of motion, supple. LUNGS: Breath sounds equal, clear to auscultation bilaterally, no wheezes, no crackles, no accessory muscle use. HEART: Regular rate and rhythm, S1, S2 without murmur, rub or gallop. ABDOMEN: Soft, nontender, nondistended, normoactive bowel sounds, no guarding, no rebound, no hepatosplenomegaly, no masses. EXTREMITIES: 2+ pulses, warm, well-perfused, no edema. NEUROLOGICAL: Cranial nerves II through XII grossly intact. Normal speech, gait not observed. PSYCH: Normal mood, normal affect. SKIN: Warm, dry, normal turgor, no rashes or lesions noted. LABS HOSPITAL COURSE: Date of Admission:04/08/18 Date of Discharge: 04/12/18 Minutes to complete discharge: 45 Discharge Summary Reason For Visit: CELLULITIS Current Active Problems Acute eczema (Acute) Acute eczema (Acute) Allergic reaction (Acute) Cellulitis of left leg (Acute) Venous insufficiency of left leg (Acute) Condition: Stable - Instructions Diet, Activity, Other Instructions: you were admitted to the hospital for cellulitis of the left lower extremity - continue Daily dressing changes with Santyl to calf ulcerations and xeroform, cling and NARGIS wrap to lozano - continue keflex (antibiotic) as prescribed - You need to follow up with an sports trainer for further testing. - Also A prominent 3.4cm lymph note of left groin, needs follow up within 2 weeks of discharge. Follow up needed as an outpatient for resolution of the swelling in 2 weeks. - please follow up in the wound clinic next week [phone] at [facility] on the 5th floor. - if any new or persistent symptoms develop please return to the emergency department Referrals: Esperanza Mcguire MD [Provisional Medical Staff] - Salvatore Olmedo MD [Staff Physician] - Fran Keating NP [Primary Care Provider] - Disposition: HOME - Home Medications Comprehensive Discharge Medication List: Ambulatory Orders ASA/Calcium Carb/Mag/Aluminum [Stiven Plus 500 mg Caplet] 500 mg PO ONCE Olopatadine HCl [Patanol] 2 drop OU BID #1 bottle 02/17/18 Acetaminophen [Tylenol .Regular Strength -] 650 mg PO Q4H PRN tablet 04/12/18 Bismuth Tribromoph/Petrolatum [Xeroform Petrolatum Dress] 1 each TP DAILY #14 bandage 04/12/18 Cephalexin [Keflex] 500 mg PO Q6H #28 capsule 04/12/18 Cholecalciferol (Vitamin D3) [Vitamin D3 -] 1,000 unit PO DAILY #30 tab Collagenase Clostridium Hist. [Santyl -] 1 applic TP DAILY #1 tube 04/12/18 Famotidine [Pepcid -] 20 mg PO BID #60 tablet 04/12/18 Lactobacillus Acidophilus [Bacid -] 1 tab PO DAILY #30 tab 04/12/18 oxyCODONE HCL [Roxicodone -] 5 mg PO Q6H PRN #20 tablet MDD 4 04/12/18 predniSONE [Deltasone -] 5 mg PO ASDIR #32 tab 04/12/18 Problem List - Problems (1) Venous insufficiency of left leg Code(s): I87.2 - VENOUS INSUFFICIENCY (CHRONIC) (PERIPHERAL) (2) Allergic reaction Code(s): T78.40XA - ALLERGY, UNSPECIFIED, INITIAL ENCOUNTER (3) Cellulitis of left leg Code(s): L03.116 - CELLULITIS OF LEFT LOWER LIMB - Discharge Referral Referred to [facility] Med P.C.: No
[2018-04-12 14:07] VITALS: BP 134/64; PULSE 66; TEMP 97.5
== END 2018-04-12 14:45 | disposition home or self-care (01) ==
LOC: FER 05:29 → FM/S 09:33
PROVIDERS: ADMIT Internal Medicine; ATTEND Nurse Practitioner Family
PROC: 3E03329 Introduction of Other Anti-infective into Peripheral Vein, Percutaneous Approach (ICD-10-PCS; principal; 2018-04-08)
PROC: 3E03329 Introduction of Other Anti-infective into Peripheral Vein, Percutaneous Approach (ICD-10-PCS; 2018-04-08)
PROC: 3E033NZ Introduction of Analgesics, Hypnotics, Sedatives into Peripheral Vein, Percutaneous Approach (ICD-10-PCS; 2018-04-08)
PROC: 3E033NZ Introduction of Analgesics, Hypnotics, Sedatives into Peripheral Vein, Percutaneous Approach (ICD-10-PCS; 2018-04-08)
PROC: 3E033NZ Introduction of Analgesics, Hypnotics, Sedatives into Peripheral Vein, Percutaneous Approach (ICD-10-PCS; 2018-04-08)
PROC: 3E033NZ Introduction of Analgesics, Hypnotics, Sedatives into Peripheral Vein, Percutaneous Approach (ICD-10-PCS; 2018-04-08)
PROC: 3E0333Z Introduction of Anti-inflammatory into Peripheral Vein, Percutaneous Approach (ICD-10-PCS; 2018-04-08)
PROC: 3E0333Z Introduction of Anti-inflammatory into Peripheral Vein, Percutaneous Approach (ICD-10-PCS; 2018-04-08)
PROC: 3E0333Z Introduction of Anti-inflammatory into Peripheral Vein, Percutaneous Approach (ICD-10-PCS; 2018-04-08)
PROC: 3E03329 Introduction of Other Anti-infective into Peripheral Vein, Percutaneous Approach (ICD-10-PCS; 2018-04-08)
PROC: 3E03329 Introduction of Other Anti-infective into Peripheral Vein, Percutaneous Approach (ICD-10-PCS; 2018-04-08)
PROC: 3E03329 Introduction of Other Anti-infective into Peripheral Vein, Percutaneous Approach (ICD-10-PCS; 2018-04-08)
DX: L03.116 Cellulitis of left lower limb (principal); T78.40XA Allergy, unspecified, initial encounter; I87.2 Venous insufficiency (chronic) (peripheral); L97.221 Non-pressure chronic ulcer of left calf limited to breakdown of skin; Z85.3 Personal history of malignant neoplasm of breast; Z90.11 Acquired absence of right breast and nipple; Z98.890 Other specified postprocedural states
CPT/HCPCS: 36415; 71046-TC-FY; 71048-TC-FY; 80048; 80053; 83735; 85025; 87040; 93005; 93971-TC; 99283-25; G0378; J0131; Q0162

== ENCOUNTER 2018-08-23 21:10 | Emergency (ER) | payer OTHER ==
[2018-08-23 21:17] VITALS: BP 166/94; PULSE 89; TEMP 97.6; BMI 25.7
--- NOTE | 2018-08-23 21:26 | PDOC ---
History of Present Illness - History of Present Illness Initial Comments: 08/23/18 22:07 The patient is a 62 year old female who presents to the emergency department for evaluation of left lower extremity pain. The patient reports moderate left leg pain with associated redness and swelling. She describes the pain as constant and notes clear discharge below the lesion on her left ankle. The patient has been using steroid and eczema cream on her leg. The patient denies chest pain, shortness of breath, headache, and dizziness. Denies fevers, chills, nausea, vomiting, diarrhea, constipation, and any urinary issues. PAST MEDICAL HISTORY: prior hospitalization for cellulitis, bilateral lower extremity eczema PAST SURGICAL HISTORY: right mastectomy FAMILY HISTORY: no pertinent history MEDICATIONS: reviewed ALLERGIES: As per nursing notes PCP: not on staff ROS General: No fevers or chills, no weakness, no weight loss HEENT: No change in vision. No sore throat,. No ear pain Cardiovascular: No chest pain or shortness of breath Respiratory:No cough, or wheezing. Gastrointestinal: no nausea, vomiting, diarrhea or constipation, No rectal bleeding Genitourinary: No dysuria, hematuria, or frequency Musculoskeletal: +Left lower extremity pain. +Left lower extremity swelling. No joint or muscle pain Neurologic: No headache, vertigo, dizziness or loss of consciousness Psychiatric: nor depression Skin: +Lesion on left ankle. No rashes or easy bruising Endocrine: no increased thirst or abnormal weight change Allergic: no skin or latex allergy All other systems reviewed and normal Physical Exam: GENERAL: The patient is awake, alert, and fully oriented, in no acute distress. HEAD: Normal with no signs of trauma. EYES: Pupils equal, round and reactive to light, extraocular movements intact, sclera anicteric, conjunctiva clear. EXTREMITIES: Left lower extremity: +Chronic lymphedema. +on medial aspect of left lower extremity, chronic poorly healed wound with serosanguinous discharge , no purulent discharge or odor. +Mild erythema with increasing warmth to surrounding area. Neurovascularly intact. No palpable calf tenderness. NEUROLOGICAL: Normal speech, normal gait. PSYCH: Normal mood, normal affect. SKIN: Warm, Dry, normal turgor, no rashes or lesions noted. <Alfonso Borrego - Last Filed: 08/23/18 22:06> - General History Source: Patient Exam Limitations: No Limitations - History of Present Illness Initial Comments: 08/23/18 22:43 A portion of this note was documented by scribe services under my direction. I have reviewed the details of the note, within reason, and agree with the documentation. The case summary and management plan written by me. Assessment and plan: This is 62-year-old female who has intermittent acute cellulitis of her left lower extremity. Patient has chronic venous insufficiency and lymphedema. Patient also has a chronic nonhealing wound to that leg that appears to be the source of infection from time to time. Patient does not follow up with a development disability specialist and I recommended that she talk to her primary care doctor about referral to a development disability specialist. Patient had a white count done that was normal and was given IV Zosyn prior to discharge on 7 days of by mouth Bactrim. Patient discharged home <Tyson Hardin I - Last Filed: 08/23/18 22:44> - General Chief Complaint: Redness To Affected Area Stated Complaint: LEFT LEG PAIN, REDNESS Time Seen by Provider: 08/23/18 21:25 Past History <Alfonso Borrego - Last Filed: 08/23/18 22:06> - Past Medical History Cancer: Yes (BREAST 20 years) COPD: No - Suicide/Smoking/Psychosocial Hx Smoking History: Former smoker Have you smoked in the past 12 months: No Number of Cigarettes Smoked Daily: 5 Information on smoking cessation initiated: No 'Breaking Loose' booklet given: 04/08/18 Hx Alcohol Use: No Drug/Substance Use Hx: No Substance Use Type: None Hx Substance Use Treatment: No <Tyson Hardin I - Last Filed: 08/23/18 22:44> - Past Medical History Allergies/Adverse Reactions: Allergies Allergy/AdvReac Type Severity Reaction Status Date / Time No Known Allergies Allergy Verified 08/23/18 21:12 Home Medications: Ambulatory Orders Sulfamethoxazole/Trimethoprim [Bactrim DS -] 1 tab PO BID #14 tablet 08/23/18 *Physical Exam - Vital Signs Last Vital Signs Temp Pulse Resp BP Pulse Ox 97.6 F 89 18 166/94 100 08/23/18 21:10 08/23/18 21:10 08/23/18 21:10 08/23/18 21:10 08/23/18 21:10 <Alfonso Borrego - Last Filed: 08/23/18 22:06> - Vital Signs Last Vital Signs Temp Pulse Resp BP Pulse Ox 97.6 F 89 18 166/94 100 08/23/18 21:10 08/23/18 21:10 08/23/18 21:10 08/23/18 21:10 08/23/18 21:10 <Tyson Hardin I - Last Filed: 08/23/18 22:44> ED Treatment Course - LABORATORY CBC & Chemistry Diagram: 08/23/18 21:50 <Alfonso Borrego - Last Filed: 08/23/18 22:06> - LABORATORY CBC & Chemistry Diagram: 08/23/18 21:50 <Tyson Hardin I - Last Filed: 08/23/18 22:44> *DC/Admit/Observation/Transfer - Attestations Scribe Attestion: 08/23/18 22:07 Documentation prepared by Alfonso Borrego, acting as medical device assembler for Tyson Hardin MD. <Alfonso Borrego - Last Filed: 08/23/18 22:06> - Discharge Dispostion Decision to Admit order: No <Tyson Hardin I - Last Filed: 08/23/18 22:44> Diagnosis at time of Disposition: Venous insufficiency of left leg, Cellulitis of left leg - Discharge Dispostion Disposition: HOME Condition at time of disposition: Stable - Prescriptions Prescriptions: Sulfamethoxazole/Trimethoprim [Bactrim DS -] 1 tab PO BID #14 tablet - Patient Instructions Additional Instructions: Take Bactrim 1 tablet twice a day for 7 days. Return to the emergency department immediately with ANY new, persistent or worsening symptoms. Continue any medications as previously prescribed by your physician. You should follow up with your primary doctor as soon as possible regarding today's emergency department visit. . Please make sure your doctor reviews the results of your emergency evaluation. Thank you for coming to the Emergency Department today for your care. It was a pleasure to see you today. Please note that your evaluation is INCOMPLETE until you follow-up with your doctor.
[2018-08-23] MEDS ORDERED: PIPERACILLIN/TAZOB 3.375 GM 3.375 GM in DEXTROSE 5%-WATER - 50 ML IVPB ONE (21:56)
[2018-08-23] MEDS ORDERED: PIPERACILLIN/TAZOBACTAM 3.375 GM VIAL IVPB ONE (21:59)
[2018-08-23 22:09] LABS: BASO % 1.5 % (0-2.0); EOS % 2.8 % (0-4.5); HEMATOCRIT 38.7 % (32.4-45.2); HEMOGLOBIN 12.9 GM/dl (10.7-15.3); LYMPH % 26.1 % (8-40); MCH 30.7 pg (25.7-33.7); MCHC 33.3 g/dl (32.0-36.0); MEAN PLT VOLUME 8.9 fl (7.5-11.1); MONO % 6.5 % (3.8-10.2); NEUT % 63.1 % (42.8-82.8); PLATELET COUNT 214 K/MM3 (134-434); RBC 4.21 M/mm3 (3.60-5.2); RDW 13.3 % (11.6-15.6); WHITE BLOOD COUNT 7.2 K/mm3 (4.0-10.8)
== END 2018-08-23 22:44 | disposition home or self-care (01) ==
LOC: FER 21:10
DX: I87.2 Venous insufficiency (chronic) (peripheral) (principal); L03.116 Cellulitis of left lower limb; Z87.891 Personal history of nicotine dependence; Z85.3 Personal history of malignant neoplasm of breast
CPT/HCPCS: 36415; 85025; 96365; 99281-25

== ENCOUNTER 2019-07-02 16:45 | Emergency (ER) | payer OTHER ==
[2019-07-02 16:58] VITALS: BP 153/93; PULSE 84; TEMP 98.1; BMI 25.7
[2019-07-02 17:42] LABS: EPITHELIAL CELLS MODERATE /hpf
--- NOTE | 2019-07-02 18:23 | PDOC ---
Documentation entered by Tree Chahal SCRIBE, acting as scribe for Devorah Tomlinson MD. Devorah Tomlinson MD: This documentation has been prepared by the Tirso stroud Aiswarya, SCRIBE, under my direction and personally reviewed by me in its entirety. I confirm that the documentation accurately reflects all work, treatment, procedures, and medical decision making performed by me. History of Present Illness <Taylor Clayton - Last Filed: 07/02/19 21:13> - History of Present Illness Initial Comments: 07/02/19 18:11 The patient is a 63 year old female, with a significant PMH of breast cancer 20 years ago, who presents to the emergency department with 3 episodes of hematuria today. The patient states she first noticed symptoms this afternoon when her urine was brownish red. Patient states she urinated 2x after and noticed her urine became more of a pinkish red. Denies clots. She endorses associated symptoms of frequency but denies any pain, dysuria, urgency or discomfort. Denies suprapubic, abdominal, or flank pain. Pt smokes half a pack of cigarettes everyday. The patient denies chest pain, shortness of breath, headache and dizziness .Denies fever, chills, nausea, vomit, diarrhea and constipation. Denies weight loss. No hx similar sxs. Allergies: NKDA Past surgical history: None reported Social history: Current everyday smoker but denies alcohol or recreational drugs. PCP: Fran Keating Daily meds: ASA 81, MV <Devorah Tomlinson - Last Filed: 07/03/19 11:27> - General Chief Complaint: Hematuria Stated Complaint: BLOOD IN URINE Time Seen by Provider: 07/02/19 16:53 Past History <Taylor Clayton - Last Filed: 07/02/19 21:13> - Past Medical History Cancer: Yes (BREAST 20 years) COPD: No - Suicide/Smoking/Psychosocial Hx Smoking History: Current every day smoker Have you smoked in the past 12 months: No Number of Cigarettes Smoked Daily: 10 Information on smoking cessation initiated: Yes 'Breaking Loose' booklet given: 04/08/18 Hx Alcohol Use: No Drug/Substance Use Hx: No Substance Use Type: None Hx Substance Use Treatment: No <Devorah Tomlinson - Last Filed: 07/03/19 11:27> - Past Medical History Allergies/Adverse Reactions: Allergies Allergy/AdvReac Type Severity Reaction Status Date / Time No Known Allergies Allergy Verified 07/02/19 16:54 Home Medications: Ambulatory Orders Levocetirizine Dihydrochloride [Xyzal] 5 mg PO DAILY 07/02/19 Review of Systems - Review of Systems Able to Perform ROS?: Yes Comments:: 07/02/19 18:12 GENERAL/CONSTITUTIONAL: No fever or chills. No weakness. HEAD, EYES, EARS, NOSE AND THROAT: No change in vision. No ear pain or discharge. No sore throat. GASTROINTESTINAL: No nausea, vomiting, diarrhea or constipation. GENITOURINARY: +Hematuria CARDIOVASCULAR: No chest pain or shortness of breath. RESPIRATORY: No cough, wheezing, or hemoptysis. MUSCULOSKELETAL: No joint or muscle swelling or pain. No neck or back pain. SKIN: No rash NEUROLOGIC: No headache, vertigo, loss of consciousness, or change in strength/ sensation. ENDOCRINE: No increased thirst. No abnormal weight change. HEMATOLOGIC/LYMPHATIC: No anemia, easy bleeding, or history of blood clots. ALLERGIC/IMMUNOLOGIC: No hives or skin allergy <Devorah Tomlinson - Last Filed: 07/03/19 11:27> *Physical Exam - Vital Signs Last Vital Signs Temp Pulse Resp BP Pulse Ox 98.1 F 84 16 153/93 98 07/02/19 16:52 07/02/19 16:52 07/02/19 16:52 07/02/19 16:52 07/02/19 16:52 <Taylor Clayton - Last Filed: 07/02/19 21:13> - Vital Signs Last Vital Signs Temp Pulse Resp BP Pulse Ox 98.1 F 84 16 153/93 98 07/02/19 16:52 07/02/19 16:52 07/02/19 16:52 07/02/19 16:52 07/02/19 16:52 - Physical Exam Comments: 07/02/19 18:15 GENERAL: Awake, alert, and fully oriented, in no acute distress EYES: PERRLA, EOMI, sclera anicteric, conjunctiva clear ENT: Oropharynx clear without exudates. Moist mucosa NECK: Normal ROM, supple, no lymphadenopathy, JVD, or masses LUNGS: Breath sounds equal, clear to auscultation bilaterally. No wheezes, and no crackles HEART: Regular rate and rhythm, normal S1 and S2, no murmurs, rubs or gallops ABDOMEN: Soft, nontender, normoactive bowel sounds. No guarding, no rebound. No masses. No CVAT, EXTREMITIES: Normal range of motion, no edema. No clubbing or cyanosis. No cords, erythema, or tenderness NEUROLOGICAL: Normal speech, cranial nerves intact, equal strength and sensation b/l SKIN: Warm, Dry, normal turgor, no rashes or lesions noted. <Devorah Tomlinson - Last Filed: 07/03/19 11:27> ED Treatment Course - LABORATORY CBC & Chemistry Diagram: 07/02/19 18:10 07/02/19 18:10 - ADDITIONAL ORDERS Additional order review: Laboratory Results 07/02/19 07/02/19 18:10 17:30 Sodium 138 Potassium 4.2 Chloride 103 Carbon Dioxide 28 Anion Gap 7 L BUN 22.0 H Creatinine 0.8 Est GFR (CKD-EPI)AfAm 90.94 Est GFR (CKD-EPI)NonAf 78.46 Random Glucose 104 Calcium 9.7 Urine Color [place] Urine Appearance Slightly Urine pH 5.5 Urine Protein 2+ H Urine Glucose (UA) Trace Urine Ketones Negative Urine Blood 3+ H Urine Nitrite Negative Urine Bilirubin Negative Urine Urobilinogen 0.2 Ur Leukocyte Esterase Negative Urine RBC >100 Urine WBC 2-5 Ur Transition Epith Cell Moderate 07/02/19 18:10 RBC 4.44 MCV 90.2 MCHC 32.8 RDW 14.6 MPV 8.6 Neutrophils % 63.3 Lymphocytes % 29.1 Monocytes % 5.2 Eosinophils % 2.0 Basophils % 0.4 <Taylor Clayton - Last Filed: 07/02/19 21:13> - LABORATORY CBC & Chemistry Diagram: 07/02/19 18:10 07/02/19 18:10 - ADDITIONAL ORDERS Additional order review: Laboratory Results 07/02/19 17:30 Urine Color [place] Urine Appearance Slightly Urine pH 5.5 Urine Protein 2+ H Urine Glucose (UA) Trace Urine Ketones Negative Urine Blood 3+ H Urine Nitrite Negative Urine Bilirubin Negative Urine Urobilinogen 0.2 Ur Leukocyte Esterase Negative Urine RBC >100 Urine WBC 2-5 Ur Transition Epith Cell Moderate - RADIOLOGY Radiology Studies Ordered: Category Date Time Status PELVIC / BLADDER US [US] Stat Ultrasound 07/02/19 17:54 Ordered <Devorah Tomlinson - Last Filed: 07/03/19 11:27> Medical Decision Making - Medical Decision Making 07/02/19 18:15 63yo F hx breast ca, daily smoker presents to the ED with painless hematuria and frequency Vitals unremarkable, exam unremarkable DDx includes UTI vs renal failure vs bladder mass Pt has no pain at all to suggest renal colic or AAA UA with 3+ blood, many reds. Negative nitrite, LE, and only 2-5 WBCx. 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 Clayton for further mgmt/dispo <Devorah Tomlinson - Last Filed: 07/03/19 11:27> *DC/Admit/Observation/Transfer <Taylor Clayton - Last Filed: 07/02/19 21:13> <Devorah Tomlinson - Last Filed: 07/03/19 11:27> Diagnosis at time of Disposition: Painless hematuria - Discharge Dispostion Disposition: HOME Condition at time of disposition: Stable - Referrals Referrals: Vazquez Burt MD [Staff Physician] - Call tomorrow Fran Keating NP [Primary Care Provider] - - Patient Instructions Printed Discharge Instructions: DI for Hematuria Additional Instructions: Drink plenty of water Call urologist () office in a.m. to arrange follow-up within the next 2 days Return to ER if you develop pain/lightheadedness/fever or bleeding becomes more severe - Post Discharge Activity
[2019-07-02 18:26] LABS: BASO % 0.4 % (0-2.0); HEMOGLOBIN 13.1 GM/dl (10.7-15.3); LYMPH % 29.1 % (8-40); MCH 29.5 pg (25.7-33.7); MCHC 32.8 g/dl (32.0-36.0); MEAN CELL VOLUME 90.2 fl (80-96); MEAN PLT VOLUME 8.6 fl (7.5-11.1); MONO % 5.2 % (3.8-10.2); NEUT % 63.3 % (42.8-82.8); PLATELET COUNT 298 K/MM3 (134-434); RBC 4.44 M/mm3 (3.60-5.2); RDW 14.6 % (11.6-15.6)
[2019-07-02 18:32] LABS: CALCIUM 9.7 mg/dl (8.5-10); CREATININE 0.8 mg/dl (0.55-1.3); POTASSIUM 4.2 mmol/L (3.5-5.1)
--- NOTE | 2019-07-02 19:40 | PDOC ---
*Physical Exam - Vital Signs Last Vital Signs Temp Pulse Resp BP Pulse Ox 98.1 F 84 16 153/93 98 07/02/19 16:52 07/02/19 16:52 07/02/19 16:52 07/02/19 16:52 07/02/19 16:52 ED Treatment Course - LABORATORY CBC & Chemistry Diagram: 07/02/19 18:10 07/02/19 18:10 - ADDITIONAL ORDERS Additional order review: Laboratory Results 07/02/19 07/02/19 18:10 17:30 Sodium 138 Potassium 4.2 Chloride 103 Carbon Dioxide 28 Anion Gap 7 L BUN 22.0 H Creatinine 0.8 Est GFR (CKD-EPI)AfAm 90.94 Est GFR (CKD-EPI)NonAf 78.46 Random Glucose 104 Calcium 9.7 Urine Color [place] Urine Appearance Slightly Urine pH 5.5 Urine Protein 2+ H Urine Glucose (UA) Trace Urine Ketones Negative Urine Blood 3+ H Urine Nitrite Negative Urine Bilirubin Negative Urine Urobilinogen 0.2 Ur Leukocyte Esterase Negative Urine RBC >100 Urine WBC 2-5 Ur Transition Epith Cell Moderate 07/02/19 18:10 RBC 4.44 MCV 90.2 MCHC 32.8 RDW 14.6 MPV 8.6 Neutrophils % 63.3 Lymphocytes % 29.1 Monocytes % 5.2 Eosinophils % 2.0 Basophils % 0.4 Medical Decision Making - Medical Decision Making Results discussed with the patient. She has no general medical doctor at this time(change related to insurance plan). She has not consulted urology in the past . 07/02/19 21:39 Case discussed with . Patient should call the office in the morning for follow-up within the next 48 hours. No other treatment or evaluation needed at this time. This was discussed with the patient and referral information provided for her. She should drink plenty of water prior to urologic evaluation. If she has development of pain, lightheadedness or fever, she should return to the ER. *DC/Admit/Observation/Transfer Diagnosis at time of Disposition: Painless hematuria - Discharge Dispostion Disposition: HOME Condition at time of disposition: Stable - Referrals Referrals: Fran Keating NP [Primary Care Provider] - Vazquez Burt MD [Staff Physician] - Call tomorrow - Patient Instructions Printed Discharge Instructions: DI for Hematuria Additional Instructions: Drink plenty of water Call urologist () office in a.m. to arrange follow-up within the next 2 days Return to ER if you develop pain/lightheadedness/fever or bleeding becomes more severe - Post Discharge Activity
== END 2019-07-02 21:50 | disposition home or self-care (01) ==
LOC: FER 16:45
DX: R31.9 Hematuria, unspecified (principal); F17.210 Nicotine dependence, cigarettes, uncomplicated; Z85.3 Personal history of malignant neoplasm of breast
CPT/HCPCS: 36415; 76775-TC; 76856-TC; 80048; 81003; 81015; 85025; 87086; 99281-25

== ENCOUNTER 2021-10-30 21:12 | Emergency (ER) | payer OTHER ==
[2021-10-30 21:22] VITALS: BP 169/95; PULSE 76; TEMP 98.9; BMI 25.6
[2021-10-30] MEDS ORDERED: DIPHTH,PERTUSS(ACELL),TET 0.5 ML DISP.SYRIN IM ONE ×2 (21:34→21:35)
== END 2021-10-30 22:53 | disposition home or self-care (01) ==
LOC: FER 21:12
PROC: 3E0234Z Introduction of Serum, Toxoid and Vaccine into Muscle, Percutaneous Approach (ICD-10-PCS; principal; 2021-10-30)
DX: S02.0XXA Fracture of vault of skull, initial encounter for closed fracture (principal); S00.83XA Contusion of other part of head, initial encounter; W01.0XXA Fall on same level from slipping, tripping and stumbling without subsequent striking against object, initial encounter
CPT/HCPCS: 70450-TC; 70486-TC; 90471; 90715; 99284-25